=== PATIENT | female | born 1965 | race Caucasian/White ===

== ENCOUNTER → 2017-12-03 | Outpatient (CLI) | payer OTHER | LOC: BRMIMAGING 12:57 | PROVIDERS: ATTEND Internal Medicine | DX: Z12.31 Encounter for screening mammogram for malignant neoplasm of breast (principal); Z80.3 Family history of malignant neoplasm of breast ==

== ENCOUNTER 2018-10-22 17:55 | Emergency (ER) | payer OTHER ==
[2018-10-22] MEDS ORDERED: NS 1,000 ML IV ONE (18:38)
[2018-10-22] MEDS ORDERED: IBUPROFEN 600 MG TAB PO ONE (18:47)
[2018-10-22] MEDS ORDERED: IPRATROPIUM/ALBUTEROL 3 ML DEYVIAL IH ONE (18:54)
[2018-10-22] MEDS ORDERED: IPRATROPIUM/ALBUTEROL 3 ML DEYVIAL ONE (19:07)
[2018-10-22] MEDS ORDERED: AZITHROMYCIN 250 MG TAB PO ONE (19:22)
--- NOTE | 2018-10-22 19:26 | EDPHY ---
H & P Time Seen by Provider: 10/22/18 18:23 HPI/ROS: This patient presents with cough fevers and chills. She has mild nasal congestion associated with her symptoms. She reports some green sputum production. Her symptoms started 1 week ago while still in [place]. She did present to an urgent care clinic on Saturday, 3 days prior to arrival where she was diagnosis of viral illness but no testing was done. She was given Robitussin with codeine as a cough suppressant reports ongoing cough with increasing frequency and severity. Her boyfriend brought her in by private vehicle for evaluation of her symptoms. ROS: Constitutional: Fevers and chills. HEENT: Nasal congestion without sinus pain or ear pain. Mild sore throat that she attributes to coughing. Pulmonary: No hemoptysis. No respiratory distress. No pleuritic pain Cardiovascular: No heart palpitations or lightheadedness. No lower extremity swelling or calf pain GI: No nausea or vomiting : No complaints Integumentary: No skin complaints except for a mild pruritic rash to her back started over the past few days. 10 point review of symptoms is performed and otherwise negative with exception of pertinent positives and negatives listed in HPI and ROS Past Medical/Surgical History: Otherwise healthy Social History: No alcohol. No drug use. 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 General Appearance: Alert, no distress. Eyes: Pupils equal and round no pallor or injection. ENT, Mouth: Mucous membranes moist. Respiratory: Dry cough with faint expiratory wheeze. No rales or rhonchi. Cardiovascular: Regular rate and rhythm. Gastrointestinal: Abdomen is soft and nontender, no masses, bowel sounds normal. Neurological: GCS 15 Skin: Warm and dry, no rashes. Musculoskeletal: Neck is supple nontender. Extremities are symmetrical, full range of motion. Psychiatric: Mood and affect normal DIFFERENTIAL DIAGNOSIS: After history and physical exam differential diagnosis was considered for influenza, acute bronchitis, pneumonia Constitutional: Initial Vital Signs Temperature (C) 39.3 C H 10/22/18 18:10 Heart Rate 100 10/22/18 18:10 Respiratory Rate 10/22/18 18:10 Blood Pressure 130/86 H 10/22/18 18:10 O2 Sat (%) 89 L 10/22/18 18:10 O2 Delivery Mode Room Air Allergies/Adverse Reactions: No Known Allergies Allergy (Verified 10/22/18 18:16) Home Medications: Medication Instructions Recorded FLUoxetine [Prozac 20 MG (*)] 07/24/14 Albuterol Hfa Anes Only [Proair 2 puffs IH Q4 PRN #1 mdi 10/22/18 Hfa Icu (*)] Azithromycin [Zithromax] 250 mg PO DAILY #4 tab 10/22/18 Benzonatate [Tessalon Pearles (RX)] 100 - 200 mg PO TID PRN #20 cap 10/22/18 MDM/Departure - MDM Imaging Results: Imaging Impressions Chest X-Ray 10/22/18 18:38 Impression: Prominence of perihilar interstitial markings and peribronchial cuffing. Findings are nonspecific but can be seen with bronchitis, reactive airway disease, or viral process. Two view chest x-ray: Peribronchial cuffing consistent with bronchitis. No focal infiltrates are appreciated Imaging: I viewed and interpreted images myself Medications Given: Discontinued Medications Albuterol/Ipratropium (Duoneb) 3 ml IH EDNOW ONE Stop: 10/22/18 18:55 Last Admin: 10/22/18 19:08 Dose: 3 ml Azithromycin (Zithromax) 500 mg PO EDNOW ONE PRN Reason: Protocol Stop: 10/22/18 19:23 Last Admin: 10/22/18 19:25 Dose: 500 mg Sodium Chloride (Ns) 1,000 mls @ 0 mls/hr IV ONCE ONE; Wide Open PRN Reason: Protocol Stop: 10/22/18 18:39 Last Admin: 10/22/18 19:05 Dose: 1,000 mls Ibuprofen (Motrin) 600 mg PO EDNOW ONE Stop: 10/22/18 18:48 Last Admin: 10/22/18 19:03 Dose: 600 mg ED Course/Re-evaluation: Studies: CBC reveals normal white count the left shift, basic metabolic panel is normal, venous lactate is normal, influenza swab is negative Course: DuoNeb with resolution of frequent coughing. The patient felt subjective improvement in her respiratory symptoms thereafter. Antipyretics with defervesced since down to 99 degrees. Discussion: Patient presents with findings consistent with bronchitis improving with treatment. Counseled her regarding this and answered all her questions prior to discharge home with plan to treat her with ibuprofen, Tylenol , humidifier, albuterol and Zithromax. She understands need to return emergency department should she develop any worsening symptoms despite treatment plan. - Depart Disposition: Home, Routine, Self-Care Clinical Impression: Acute bronchitis Qualifiers: Bronchitis organism: unspecified organism Qualified Code(s): J20.9 - Acute bronchitis, unspecified Fever Qualifiers: Fever type: unspecified Qualified Code(s): R50.9 - Fever, unspecified Condition: Fair Instructions: Acute Bronchitis (ED) Additional Instructions: Diagnosis: Acute bronchitis Plan: Drink plenty fluids Albuterol inhaler for cough, wheeze or shortness of breath Zithromax antibiotic as prescribed Ibuprofen Tylenol for fevers or aches. You're skin rash should resolve as the infection resolved. Follow up with primary care physician for any ongoing symptoms persist beyond the next 5-7 days despite the treatment plan. Return for any significant worsening despite the treatment plan Stand Alone Forms: Work Excuse Prescriptions: Albuterol Hfa Anes Only [Proair Hfa Icu (*)] 2 puffs IH Q4 PRN #1 mdi PRN Reason: Wheezing Azithromycin [Zithromax] 250 mg PO DAILY #4 tab Benzonatate [Tessalon Pearles (RX)] 100 - 200 mg PO TID PRN #20 cap PRN Reason: cough Referrals: NONE *PRIMARY CARE P,. [Primary Care Provider] - As per Instructions Ally Cruz MD [Medical Doctor] - As per Instructions
[2018-10-22 20:04] VITALS: BP 123/81
== END 2018-10-22 20:07 | disposition home or self-care (01) ==
LOC: CED 17:55
DX: J20.9 Acute bronchitis, unspecified (principal); R50.9 Fever, unspecified; E86.9 Volume depletion, unspecified
CPT/HCPCS: 71046-PO; 80048-ER; 83605-ER; 96360-ER; 99284-ER

== ENCOUNTER 2018-11-09 10:16 | Emergency (ER) | payer OTHER ==
[2018-11-09] MEDS ORDERED: IOPAMIDOL (ISOVUE 370) 100 ML BTL IV ONE (11:05)
--- NOTE | 2018-11-09 13:41 | EDPHY ---
H & P Stated Complaint: has had 3 weeks of resp issues post travel to [place] now has developed chest Time Seen by Provider: 11/09/18 10:29 HPI/ROS: CHIEF COMPLAINT: Chest pain and short of breath HISTORY OF PRESENT ILLNESS: This is a 53-year-old female who has been struggling with respiratory illness since mid October. On October 10 she travel to [place], returning 1 week later. She developed a sore throat and cough during her last night in [place]. After returning home she continued with sore throat and cough and was seen 3 days after her return at Urgent Care. She was diagnosed with conjunctivitis. 2 days later she presented at [facility] Emergency Department with a temperature of 102 degrees. She had a chest x-ray done and was diagnosed with bronchitis. She was started on an albuterol MDI and a Z-Harpreet, which she completed. She was not experiencing chest pain at that time. Following week she continued with cough and fatigue and was unable to work consistently. She was re-evaluated by her primary care office and started on Augmentin, which she finished yesterday. She was able to work last week but she has noticed some right localized chest pain. Yesterday morning she developed shortness of breath that was not relieved by her albuterol inhaler. She then developed pain behind her left breast which has persisted. Her exhaustion worsened but the right chest pain seemed to resolve. Today she felt lightheaded, as if she might faint. The worsening shortness of breath, left chest pain, and presyncopal feelings prompted her visit to the emergency department. REVIEW OF SYSTEMS: A ten system review of systems was performed and is negative with the exception of the items mentioned in the HPI. Past medical history: Anxiety and depression Past surgical history: Hysterectomy Family history: No history of clotting disorder Social history: She works at [employer]. She is here with her . She does not use tobacco products. General Appearance: Alert. Vital signs reviewed. Heart rate 134 at triage, blood pressure 144/100, room air oxygen saturation 100%. Eyes: Pupils equal and round, no conjunctival injection, no discharge. Anicteric. ENT, Mouth: Mucous membranes are moist, no oropharyngeal erythema or edema. Respiratory: Lungs are clear to auscultation; no wheezes, rales, or rhonchi. Cardiovascular: Regular rate and rhythm; no murmur, rub, or gallop. Not tachycardic at the time of my exam. Gastrointestinal: Abdomen is soft and nontender, no masses or organomegaly, bowel sounds normal. Skin: Warm and dry, no rashes on exposed skin, normal color. Back: Nontender to palpation over the thoracolumbar spine. No CVAT. Extremities: No lower extremity edema, no calf tenderness or swelling. Neurological: Alert and oriented. Moving all four extremities easily and equally. Psychiatric: Normal affect. - Personal History LMP (Females 10-55): Hysterectomy Current Tetanus Diphtheria and Acellular Pertussis (TDAP): Yes - Medical/Surgical History Hx Asthma: No Hx Chronic Respiratory Disease: No Hx Diabetes: No Hx Cardiac Disease: No Hx Renal Disease: No Hx Cirrhosis: No Hx Alcoholism: No Hx HIV/AIDS: No Hx Splenectomy or Spleen Trauma: No Other PMH: med hx-anxiety/depression. surg-hyst - Social History Smoking Status: Never smoked Constitutional: Initial Vital Signs Temperature (C) 36.4 C 11/09/18 10:20 Heart Rate 134 H 11/09/18 10:20 Respiratory Rate 20 11/09/18 10:20 Blood Pressure 144/100 H 11/09/18 10:20 O2 Sat (%) 100 11/09/18 10:20 O2 Delivery Mode Room Air Allergies/Adverse Reactions: No Known Allergies Allergy (Verified 11/09/18 10:19) Home Medications: Medication Instructions Recorded FLUoxetine [Prozac 20 MG (*)] 07/24/14 Albuterol Hfa Anes Only [Proair 2 puffs IH Q4 PRN #1 mdi 10/22/18 Hfa Icu (*)] Benzonatate [Tessalon Pearles (RX)] 100 - 200 mg PO TID PRN #20 cap 10/22/18 Medical Decision Making - Diagnostics Imaging Results: Imaging Impressions Chest/Thorax CTA 11/09/18 11:00 Impression: 1. No evidence of pulmonary embolic disease. 2. See above report for additional findings. Results called and discussed with CLEMENTINA CROSS M.D. on 11/09/2018 at 12:57. ED Course/Re-evaluation: 53-year-old female has been struggling with the upper respiratory/bronchitis infection for the past 3 weeks. She has been treated with albuterol MDI, azithromycin, and Augmentin. She now has signs and symptoms of PE with chest pain, initial tachycardia, presyncope, and subjective shortness of breath. Given her long plane ride (to [place] and back within a week) and her symptoms I feel that it is prudent to proceed directly to CT angiogram to assess for PE. I do not feel that he D-dimer is sufficient to rule out PE in her case. CT angiogram was reported to me by Dr. Wallace Heredia. There is no evidence of pulmonary embolus. No pneumonia. The patient had a troponin of 0. I reviewed her EKG. Above findings were reviewed with the patient. I do not think that her signs and symptoms are consistent with an acute coronary syndrome and I do not recommend further evaluation of her heart. I think that she has a respiratory illness, likely contracted while in [place]. She has completed to course of antibiotics and I do not recommend additional antibiotics at this point in time. She is not hypoxic or febrile. Her lungs are clear. CT angiogram is negative for PE, which was both her and my main concern. Differential Diagnosis: Shortness of breath including but not limited to pulmonary infectious process, COPD, asthma, pulmonary embolus and congestive heart failure. - Data Points Laboratory Results: 11/09/18 10:32 POC Troponin I 0.00 ng/mL ng/mL (0.00-0.08) Point of Care Test Results: Chemistry 11/09/18 10:32 POC Troponin I 0.00 ng/mL ng/mL (0.00-0.08) Departure - Departure Disposition: [facility] Clinical Impression: Bronchitis Condition: Good Instructions: Acute Bronchitis (ED) Additional Instructions: Continue your current care. Follow up with Dr. Ashley. There is no evidence of pneumonia or a blood clot on the CT angiogram of your chest. Referrals: Val Ashley MD [Medical Doctor] - As per Instructions
[2018-11-09 13:58] VITALS: BP 113/80
--- NOTE | 2018-11-09 16:33 | CPEKG ---
Test Reason : OPEN Blood Pressure : / mmHG Vent. Rate : 103 BPM Atrial Rate : 103 BPM P-R Int : 138 ms QRS Dur : 089 ms QT Int : 363 ms P-R-T Axes : 055 069 -74 degrees QTc Int : 475 ms Sinus tachycardia LVH with secondary repolarization abnormality Confirmed by Elis Hernandez [id number] on 11/09/2018 4:33:31 PM Referred By: Elis Hernandez Confirmed By:Elis Hernandez
== END 2018-11-09 13:57 | disposition short-term general hospital (02) ==
DX: J40 Bronchitis, not specified as acute or chronic (principal)
CPT/HCPCS: 84484-ER; Q9967